=== PATIENT | male | born 1960 | race Caucasian/White ===

== ENCOUNTER 2017-01-12 09:05 | Emergency (ER) | payer OTHER ==
[~2017-01-12] VITALS: Ht 180.3 cm; Wt 115.7 kg
[2017-01-12] MEDS ORDERED: ADVAIR 250-501 EACH INH (09:23)
[2017-01-12] MEDS ORDERED: PREDNISONE20 M1 PO (09:23)
[2017-01-12] MEDS ORDERED: LEVOFLOXACIN500 M1 PO (09:23)
[2017-01-12] MEDS ORDERED: PROAIR HFA8.5 GM INH (09:24)
--- NOTE | 2017-01-12 09:37 | ED GENERAL ADULT ---
History of Present Illness General Chief Complaint: Upper Respiratory Sx/Fever Stated Complaint: COUGH,CHEST CONGESTION,FEVER Source: patient Exam Limitations: no limitations Vital Signs & Intake/Output Vital Signs & Intake/Output Vital Signs Date Time Temp Pulse Resp B/P Pulse O2 O2 Flow FiO2 Ox Delivery Rate 01/12 1142 98.0 88 20 164/81 97 Room Air Room Air 01/12 1055 96 01/12 0909 96.8 84 18 182/90 95 Room Air Allergies Coded Allergies: cefaclor (From [facility]) (Severe, ITCHING 01/12/17) Reconcile Medications Albuterol Sulfate (Proair Hfa) 90 MCG HFA.AER.AD 2 PUF INH Q4-6 PRN PRN BREATHING PROBLEMS (Reported) Albuterol Sulfate 0.63 MG/3 ML VIAL.NEB 1 Vial INH/CHASE TID BRONCHOSPASM Fluticasone/Salmeterol (Advair 250-50 Diskus) 250 MCG-50 MCG/DOSE BLST.W.DEV 1 PUF INH BID BREATHING PROBLEMS (Reported) Levofloxacin 500 MG TABLET 1 TAB PO DAILY ANTIBIOTIC, INFECTION (Reported) Mometasone Furoate (Nasonex) 50 MCG SPRAY.PUMP 2 SPRAY NASB DAILY ALLERGY [Nebulizer Machine] 1 INH PO Q6H PRN BRONCHOSPASM Prednisone 20 MG TABLET 1 TAB PO DAILY STEROID (Reported) Triage Note: 56 Y/O MALE C/O URI SYMPTOMS SINCE TUESDAY; C/O "MUCOUS IN MY LUNGS .. A REAL BAD COUGH .. CAN'T BREATH". WAS EVAL'D BY PRIMARY AND PLACED ON INHALERS, PREDNISONE AND ANTIBIOTIC. STATES THE INHALERS HAVE BEEN HELPING. SPEAKING CLEARLY WITH NO DISTRESS NOTED. SAT 95% AFEBRILE. Triage Nurses Notes Reviewed? yes HPI: 56-year-old man with past medical history of asthma and obstructive sleep apnea on nocturnal CPAP seen for evaluation of productive cough and chest tightness. He reports that in the end of November he has had a cough productive of clear/ green sputum and associated subjective fever. He reportedly saw his primary care provider Dr. Claros of [facility] home prescribed the patient a 10 day course of levofloxacin and a prednisone taper in addition to his home regimen of albuterol, decongestants, and Spiriva. Despite these interventions his symptoms have persisted. He also reports that his is sick with similar symptoms. He admits to decreased oral intake secondary to these symptoms. Otherwise he denies any headache, chills, chest pain, palpitations, shortness of breath, nausea, vomiting, diarrhea, urinary urgency/frequency. (NAOMI BURDEN MD) Past History Travel History Traveled to [place] past 21 day No Medical History Any Pertinent Medical History? 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 Yes (NAOMI BURDEN MD) Review of Systems Review of Systems Constitutional: Reports: see HPI. (NAOMI BURDEN MD) Review of Systems Constitutional: Reports: no symptoms. EENTM: Reports: see HPI, nasal congestion, throat pain. Respiratory: Reports: see HPI, cough, short of breath, sputum production, wheezing. Cardiovascular: Reports: no symptoms. GI: Reports: no symptoms. Genitourinary: Reports: no symptoms. Musculoskeletal: Reports: no symptoms. Skin: Reports: no symptoms. Neurological/Psychological: Reports: no symptoms. Hematologic/Endocrine: Reports: no symptoms. Immunologic/Allergic: Reports: no symptoms. All Other Systems: Reviewed and Negative (BRENNA GONZALEZ MD) Physical Exam Physical Exam General Appearance: well developed/nourished, no apparent distress, alert, awake , comfortable, obese Comments: General -well-developed, well-nourished obese man in no acute distress HEENT - NCAT, PERRL, EOMI, anicteric sclera Cardio - S1, S2 w/o murmurs/gallops/rubs Resp -audible cough without wheezing/rhonchi/crackles GI - soft, bees, nontender, nondistended, bowel sounds present Neuro - Awake and alert, CN II - XII grossly intact Extremities -normal pulses, no cyanosis/clubbing/edema Core Measures ACS in differential dx? No CVA/TIA Diagnosis: No Severe Sepsis Present: No Septic Shock Present: No (NAOMI BURDEN MD) Progress Differential Diagnoses I considered the following diagnoses in my evaluation of the patient: Acute bronchitis, pneumonia, pharyngitis, influenza Plan of Care: Orders Procedure Date/time Status AEROSOL (GEN) 01/12 1054 Complete RAPID VIRAL INFLUENZA A 01/12 931 Complete COMPREHENSIVE METABOLIC PANEL 01/12 931 Complete CBC WITHOUT DIFFERENTIAL 01/12 931 Complete Laboratory Tests 01/12/17 0956: Anion Gap 11, Estimated GFR > 60, BUN/Creatinine Ratio 20.0, Glucose 99, Calcium 9.1, Total Bilirubin 0.8, AST 45, ALT 45, Alkaline Phosphatase 66, Total Protein 7.2, Albumin 4.2, Globulin 3.0, Albumin/Globulin Ratio 1.4, CBC w Diff NO MAN DIFF REQ, RBC 4.98, MCV 88.6, MCH 29.7, RDW 13.2, MPV 5.9 L, Gran % 69.4, Lymphocytes % 23.6, Monocytes % 6.7, Eosinophils % 0.2, Basophils % 0.1, Absolute Granulocytes 6.4, Absolute Lymphocytes 2.2, Absolute Monocytes 0.6, Absolute Eosinophils 0, Absolute Basophils 0, PUBS MCHC 33.5 Initial ED EKG: none Comments: Given the patient's symptoms of a productive cough without any obvious fever likely than not patient has an acute viral bronchitis. Patient was given an albuterol nebulizer treatment which offered him some relief. Complete blood count is unremarkable and did not demonstrate leukocytosis. Complete metabolic panel was within normal limits. Chest x-ray did not demonstrate any acute cardiopulmonary disease. Rapid flu for influenza A and B. Patient is discharged home with prescription for Flonase and a nebulizer machine with albuterol inhalation and instruction to follow-up with his primary care provider and Dr. Philip after discharge. (BERTRAM MOORE,NAOMI) Differential Diagnoses I considered the following diagnoses in my evaluation of the patient: Diagnostic Imaging: Viewed by Me: Radiology Read. Discussed w/RAD: Radiology Read. CXR Impression: no acute abnormality, no infiltrates (BRENNA GONZALEZ MD) Departure Departure Disposition: HOME OR SELF CARE Condition: Stable Referrals: JODIE MOORE,MIKEY Joya (PCP/Family) Additional Instructions: Take Flonase as directed. Follow-up with Dr. Philip after discharge for further evaluation of your allergies and medication regimen. Follow-up with your primary care provider after discharge. Continue to take your levofloxacin and prednisone taper as previously directed. 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 I have also reviewed all the pertinent lab results and diagnostic results. I agree with the findings and the plan of care as documented in the PA's/DRAWBRIDGE TENDER's documentation. [] I have reviewed the ED Record and agree with the PA's/DRAWBRIDGE TENDER's documentation. [] Additions or exceptions (if any) to the PAs/DRAWBRIDGE TENDER's note and plan are summarized below: [] Resident Co-Sign Statement Statement: ED Attending supervision documentation- x I saw and evaluated the patient. I have also reviewed all the pertinent lab results and diagnostic results. I agree with the findings and the plan of care as documented in the Resident's documentation. [] I have reviewed the ED Record and agree with the Resident's documentation. [] Additions or exceptions (if any) to the Resident's note and plan are summarized below: [] (BRENNA GONZALEZ MD) Critical Care Note Critical Care Note Critical Care Time: non-applicable (NAOMI BURDEN MD)
[2017-01-12 10:04] LABS: ABSOLUTE BASOPHIL COUNT 0 /CUMM (0.0-0.2); ABSOLUTE EOSINOPHIL COUNT 0 /CUMM (0.0-0.7); ABSOLUTE GRANULOCYTE CT 6.4 /CUMM (1.4-6.5); ABSOLUTE LYMPH COUNT 2.2 /CUMM (1.2-3.4); ABSOLUTE MONOCYTE COUNT 0.6 /CUMM (0.10-0.60); BASOPHIL % 0.1 % (0.0-2.0); EOSINOPHIL % 0.2 % (0-5); GRANULOCYTE % 69.4 % (42.2-75.2); HEMATOCRIT 44.1 % (42-52); MEAN CORPUSCULAR HGB 29.7 PG (27.0-31.0); MEAN CORPUSCULAR HGB CONC 33.5 G/DL (33.0-37.0); MEAN CORPUSCULAR VOLUME 88.6 FL (80.0-94.0); MEAN PLATELET VOLUME 5.9 FL (7.4-10.4); PLATELET COUNT 224 /CUMM (130-400); RBC DISTRIBUTION WIDTH 13.2 % (11.5-14.5); RED BLOOD CELL CT 4.98 /CUMM (4.70-6.10); WHITE BLOOD CELL COUNT 9.2 /CUMM (4.8-10.8)
--- NOTE | 2017-01-12 10:08 | RADIOLOGY REPORT ---
EXAMINATION: XR CHEST CLINICAL INFORMATION: Acute bronchitis. Evaluate for airway disease. Persistent productive cough. COMPARISON: Chest radiograph 11/24/2016. TECHNIQUE: 2 views of the chest were obtained. FINDINGS: Lungs are well-expanded. There is no focal consolidative disease, pleural effusion, or pneumothorax. The cardiac silhouette and upper mediastinal contours are normal. No acute osseous finding. Chronic changes of an anterior cervical discectomy and fusion are visualized within the lower cervical spine. IMPRESSION: Unremarkable chest radiograph. No consolidative disease or effusion.
[2017-01-12] MEDS ORDERED: NASONEX17 GM NASB (10:15)
[2017-01-12] MEDS ORDERED: Nebulizer Machine PO (10:26)
[2017-01-12] MEDS ORDERED: ALBUTEROL0.63 MG/1 INH/SOL (10:26)
[2017-01-12 11:42] VITALS: BP 164/81
== END 2017-01-12 11:42 ==
LOC: ERH 09:05
PROVIDERS: Internal Medicine Interventional Cardiology
DX: J44.1 Chronic obstructive pulmonary disease with (acute) exacerbation (principal); J21.9 Acute bronchiolitis, unspecified; J32.9 Chronic sinusitis, unspecified; R07.89 Other chest pain
CPT/HCPCS: 1263; 87804; 87804-59